=== PATIENT | female | born 1960 | race Asian ===

== ENCOUNTER 2019-04-27 18:55 | Emergency (ER) | payer MEDICAID ==
[~2019-04-27] VITALS: Ht 149.9 cm; Wt 54.5 kg
[2019-04-27] MEDS ORDERED: AMLO-512 PO (19:09)
[2019-04-27 19:55] LABS: APPEARANCE,URINE CLEAR (CLEAR); BILIRUBIN,URINE NEGATIVE (NEGATIVE); GLUCOSE, URINE (UA) NEGATIVE (NEGATIVE); KETONES,URINE NEGATIVE (NEGATIVE); LEUKOCYTE ESTERASE ,URINE NEGATIVE (NEGATIVE); NITRATE,URINE NEGATIVE (NEGATIVE); OCCULT BLOOD,URINE NEGATIVE (NEGATIVE); PROTEIN,URINE NEGATIVE (NEGATIVE); UROBILINOGEN,URINE 0.2 mg/dL (<=1.0)
[2019-04-27] MEDS ORDERED: KETOROLAC TROMETHAMINE 60 MG/2 ML VIAL IM ONE (20:15)
[2019-04-27] MEDS ORDERED: DIAZEPAM 5 MG TABLET PO ONE (20:15)
[2019-04-27] MEDS ORDERED: LIDOCAINE 5% TRANSDERMAL PATCH TD ONE (21:30)
[2019-04-27] MEDS ORDERED: OxyCODONE HCL/ACETAMINOPHEN 10-325 MG TABLET PO ONE (21:30)
[2019-04-27 22:00] VITALS: BP 135/80
== END 2019-04-27 22:15 | disposition home or self-care (01) ==
LOC: EMS 18:57
DX: M54.5 Low back pain (principal); I10 Essential (primary) hypertension
CPT/HCPCS: 72100; 81003; 96372; 99284; J1885

== ENCOUNTER 2022-12-30 08:44 | Emergency (ER) | payer BC, OTHER ==
[~2022-12-30] VITALS: Ht 149.9 cm; Wt 57.3 kg
[~2022-12-30 08:44] MED LIST: AMLO-258 PO
[2022-12-30 08:47] VITALS: BP 134/93
[2022-12-30 08:55] LABS: COVID AG,FIA SOURCE NASAL SWAB
[2022-12-30] MEDS ORDERED: ACETAMINOPHEN 500 MG TABLET PO ONE (09:15)
[2022-12-30] MEDS ORDERED: GuaiFENesin/D-METHORPHAN [SUGAR-FREE] 200-20MG/10 ML SYRUP UDCUP PO ONE (09:15)
[2022-12-30 09:27] LABS: INFLUENZA TYPE A NEGATIVE FOR TYPE A (NEGATIVE); INFLUENZA TYPE B NEGATIVE FOR TYPE B (NEGATIVE)
[2022-12-30] MEDS ORDERED: BENZ-227 PO ×2 (10:03→12:12)
[2022-12-30] MEDS ORDERED: ACET-66 PO ×2 (10:03→12:12)
[2022-12-30] MEDS ORDERED: GUAIFDM PO ×2 (10:03→12:12)
== END 2022-12-30 10:08 | disposition home or self-care (01) ==
LOC: EMS 08:55
DX: J06.9 Acute upper respiratory infection, unspecified (principal); J20.9 Acute bronchitis, unspecified; I10 Essential (primary) hypertension; Z20.822 Contact with and (suspected) exposure to COVID-19
CPT/HCPCS: 99284; 71046; 87426; 87804; C9803

== ENCOUNTER 2025-03-07 21:03 | Emergency (ER) | payer BC, OTHER ==
[~2025-03-07] VITALS: Ht 149.9 cm; Wt 59.1 kg
[~2025-03-07 21:03] MED LIST changes: +ACET-66 PO; +BENZ-227 PO; +GUAIFDM PO
[2025-03-07 21:05] VITALS: TEMP 98.1
[2025-03-08] MEDS: LIDOCAINE 5% TRANSDERMAL PATCH TD ONE (00:08)
[2025-03-08] MEDS: diazePAM 5 MG TABLET PO ONE (00:08)
[2025-03-08] MEDS: KETOROLAC TROMETHAMINE 30 MG/ML VIAL IM ONE (00:09)
[2025-03-08 01:05] VITALS: BP 109/61; PULSE 77; RESP 16; O2SAT 98
[2025-03-08] MEDS ORDERED: DIAZ-328 PO (01:51)
== END 2025-03-08 02:07 | disposition home or self-care (01) ==
LOC: EMS 21:03
DX: M54.41 Lumbago with sciatica, right side (principal); I10 Essential (primary) hypertension; Z79.899 Other long term (current) drug therapy
CPT/HCPCS: 99283; 96372; J1885